=== PATIENT | male | born 1985 | race Caucasian/White ===

== ENCOUNTER 2017-12-04 15:33 | Emergency (ER) | END 2017-12-04 22:42 | disposition home or self-care (01) ==

== ENCOUNTER 2018-12-11 18:12 | Emergency (ER) | payer BC ==
[~2018-12-11] VITALS: Wt 112.5 kg
[~2018-12-11 18:12] MED LIST: ALBU8.5H8 INH; DENIES MEDS; GUAI120S26 PO; IBUP-1542 PO
[2018-12-11] MEDS ORDERED: ACETAMINOPHEN 500 MG TAB PO STA (20:40)
[2018-12-11] MEDS ORDERED: IBUPROFEN 800 MG TAB PO ONE (21:00)
[2018-12-11] MEDS ORDERED: LEVO750T25 PO (22:05)
[2018-12-11] MEDS ORDERED: BENZ-6 PO (22:05)
[2018-12-11] MEDS ORDERED: IBUP800T48 PO (22:05)
[2018-12-11] MEDS ORDERED: PROM6.2515 PO (22:05)
[2018-12-11] MEDS ORDERED: ACET325T33 PO (22:05)
[2018-12-11 22:12] VITALS: BP 121/66; PULSE 68; RESP 18
--- NOTE | 2018-12-12 00:19 | ERD ---
ER Documentation Chief Complaint Chief Complaint FEVER, BODY ACHES, COUGH X'S 4 DAYS HPI 33-year-old male presenting with cough and body aches. Patient states he has had a fever for the last 4 days. He has congestion with a sore throat. No abdominal pain and no chest pain. He has a diffuse body aches. Positive sick contacts at home. All family members at home have similar symptoms. He has not taken medication today. Medical history of sleep apnea. NKDA. Surgical history denies. Social history quit smoking 8 days ago. ROS All systems reviewed and are negative except as per history of present illness. Medications Home Meds Active Scripts Acetaminophen* (Tylenol*) 325 Mg Tablet, 2 TAB PO Q8 PRN for PAIN AND OR ELEVATED TEMP, #20 TAB Prov:VINOD PAIZ PA-C 12/11/18 Ibuprofen* (Motrin*) 800 Mg Tab, 800 MG PO Q6, #30 TAB Prov:VINOD PAIZ PA-C 12/11/18 Promethazine Hcl* (Promethazine Hcl* Syrup) 6.25 Mg/5 Ml Syrup, 6.25 MG PO Q6H PRN for COUGH, #100 ML Prov:VINOD PAIZ PA-C 12/11/18 Benzonatate* (Tessalon Perle*) 100 Mg Capsule, 100 MG PO Q8H PRN for COUGH, #30 CAP Prov:VINOD PAIZ PA-C 12/11/18 Levofloxacin* (Levaquin*) 750 Mg Tablet, 750 MG PO DAILY for 5 Days, TAB Prov:VINOD PAIZ PA-C 12/11/18 Albuterol Sulfate* (Proair HFA*) 8.5 Gm Hfa.aer.ad, 2 PUFF INH Q6, #1 INHALER Prov:HA HEADLEY PA-C 12/04/17 Igrfdikzbvz-E-Qauxiwvlkc Hb* (Guaifenesin* DM Syrup) 120 Ml Syrup, 10 ML PO Q4H PRN for COUGH, #120 ML Prov:HA HEADLEY PA-C 12/04/17 Ibuprofen* (Motrin*) 600 Mg Tab, 600 MG PO Q6, #30 TAB Prov:HA HEADLEY PA-C 12/04/17 Reported Medications [Denies Meds] No Conflict Check 02/08/11 Allergies Allergies: Coded Allergies: No Known Drug Allergy (Verified Allergy, Mild, 02/08/11) PMhx/Soc History of Surgery: No Anesthesia Reaction: No Hx Neurological Disorder: No Hx Respiratory Disorders: No Hx Cardiac Disorders: No Hx Psychiatric Problems: No Hx Miscellaneous Medical Probl: No Hx Alcohol Use: Yes (OCCASSI-SATURDAY) Hx Substance Use: No Hx Tobacco Use: Yes (1 1/2 PACKS DAILY) Smoking Status: Current every day smoker FmHx Family History: No diabetes, No coronary disease, No other Physical Exam Vitals Vital Signs Date Temp Pulse Resp B/P (MAP) Pulse Ox O2 O2 Flow FiO2 Time Delivery Rate 12/11/18 98.2 68 18 121/66 96 Room Air 22:12 (84) 12/11/18 100.7 124 18 138/73 94 18:36 (94) Physical Exam GENERAL: The patient is well-appearing, well-nourished, in no acute distress HEENT: Atraumatic. Conjunctivae are pink. Pupils equal, round, and reactive to light. There is no scleral icterus. Tympanic membranes clear bilaterally. Oropharynx clear. No nystagmus or photophobia. NECK: C-spine is soft and supple. There is no meningismus. There is no cervical lymphadenopathy. CHEST: Coarse breath sounds heard throughout with no focal rhonchi or wheezing. HEART: Regular rate and rhythm. No murmurs, clicks, rubs or gallops. No S3 or S4. ABDOMEN:Soft, nontender and nondistended. Good bowel sounds. No rebound or guarding. No gross peritonitis. No gross organomegaly or masses. No Shaikh sign or McBurney point tenderness. Results 24 hrs Current Medications Medications Dose Sig/Kerrie Start Time Status Last (Trade) Ordered Route PRN Stop Time Admin Dose Reason Admin 1,000 mg ONCE STAT 12/11/18 DC 12/11/18 Acetaminophen PO 20:40 20:47 (Tylenol 12/11/18 20:42 Tab) Ibuprofen 800 mg ONCE ONCE 12/11/18 DC 12/11/18 (Motrin) PO 21:00 20:47 12/11/18 21:01 Procedures/MDM DIAGNOSTIC IMAGING REPORT Patient: JEANETTE BANKS DOB: 1985 Age: 33 Sex: M MR #: [id number] DOS: 12/11/182039 Ordering MD: VIPIN PAIZ PA-C Location: [facility] Room/Bed: PROCEDURE: Chest. CLINICAL INDICATION: Cough. TECHNIQUE: Single frontal view of the chest was obtained. COMPARISON: 12/04/2017. FINDINGS: The cardiac silhouette is within normal limits. The aortic arch is unremarkable. There is no focal consolidation, vascular congestion or pleural effusion. There is no pneumothorax. IMPRESSION: No evidence for active cardiopulmonary disease. ER course: Influenza negative. Ibuprofen and Tylenol given ED. MDM: 33-year-old male presenting with URI type symptoms. Patient did have coarse breath sounds or auscultation so I will treat with antibiotics as there is concern for possible infection. I believe patient's fever is likely associated with viral syndrome and I have low suspicion for sepsis. Patient's other vitals are stable and patient is nontoxic appearing. Patient's tachycardia is likely associated with recent fever. Patient is told symptoms change or worsen to immediately return to the ER. All questions answered at discharge. Patient stated he felt much better after medication was given in the ED. Departure Diagnosis: Primary Impression: Influenza-like symptoms Condition: Stable Patient Instructions: Cough, Chronic, Uncertain Cause, (Adult), Influenza (Adult) Referrals: [facility] YOU HAVE RECEIVED A MEDICAL SCREENING EXAM AND THE RESULTS INDICATE THAT YOU DO NOT HAVE A CONDITION THAT REQUIRES URGENT TREATMENT IN THE EMERGENCY DEPARTMENT. FURTHER EVALUATION AND TREATMENT OF YOUR CONDITION CAN WAIT UNTIL YOU ARE SEEN IN YOUR DOCTORS OFFICE WITHIN THE NEXT 1-2 DAYS. IT IS YOUR RESPONSIBILITY TO MAKE AN APPOINTMENT FOR FOL-UP CARE. IF YOU HAVE A PRIMARY DOCTOR --you should call your primary doctor and schedule an appointment IF YOU DO NOT HAVE A PRIMARY DOCTOR YOU CAN CALL OUR PHYSICIAN REFERRAL HOTLINE AT IF YOU CAN NOT AFFORD TO SEE A PHYSICIAN YOU CAN CHOSE FROM THE FOLLOWING [facility] [address] [facility]. [facility] [address] [facility] [facility] [address] [facility] [address] [facility]. [facility] [address] [facility] [facility]. [address] Additional Instructions: FOLLOW UP WITH YOUR PRIMARY CARE PHYSICIAN TOMORROW.Return to this facility if you are not improving as expected. VINOD PAIZ PA-C Dec 12, 2018 00:19
== END 2018-12-11 22:13 | disposition home or self-care (01) ==
LOC: FTE 18:12
DX: R05 Cough (principal); R52 Pain, unspecified; F17.210 Nicotine dependence, cigarettes, uncomplicated; J02.9 Acute pharyngitis, unspecified
CPT/HCPCS: 71045; 87400; Z7502; Z7610